=== PATIENT | male | born 1990 | race Caucasian/White ===

== ENCOUNTER 2019-07-06 19:46 | Emergency (ER) | payer OTHER ==
[~2019-07-06] VITALS: Ht 182.9 cm; Wt 111.1 kg
[~2019-07-06 19:46] MED LIST: AMOXICILLIN500 MG PO; CEPHALEXIN500 MG PO
[2019-07-06] MEDS ORDERED: IBUPROFEN200 MG PO (19:57)
[2019-07-06] MEDS ORDERED: KEFLEX500 MG PO (22:34)
[2019-07-06] MEDS ORDERED: NORCO 5-325 TA1 EACH PO (22:34)
== END 2019-07-06 23:08 | disposition home or self-care (01) ==
LOC: ED 19:46
PROC: 0XQVXZZ Repair Right Little Finger, External Approach (ICD-10-PCS; principal; 2019-07-06)
DX: S06.0X0A Concussion without loss of consciousness, initial encounter (principal); S62.646B Nondisplaced fracture of proximal phalanx of right little finger, initial encounter for open fracture; S61.511A Laceration without foreign body of right wrist, initial encounter; F17.200 Nicotine dependence, unspecified, uncomplicated; V49.9XXA Car occupant (driver) (passenger) injured in unspecified traffic accident, initial encounter
CPT/HCPCS: 12002; 70450; 71046; 72125; 73110; 73130; 99284-25